=== PATIENT | male | born 1960 | race Caucasian/White ===

== ENCOUNTER 2019-03-01 11:13 | Observation (INO) | payer BC, MEDICARE ==
[2019-03-01] MEDS ORDERED: SODIUM CHLORIDE 0.9% 1,000 ML IV STA (12:05)
--- NOTE | 2019-03-01 12:27 | ED ---
Back Pain HPI - General Chief Complaint: Back Pain/Injury Stated Complaint: back pain/left side concerns Time Seen by Provider: 03/01/19 11:20 Source: patient, RN notes reviewed, old records reviewed Limitations: no limitations - History of Present Illness Initial Comments: Patient is an 58-year-old male who presents emergency department today for evaluation for complaints of back pain as well as an episode of left-sided arm and left leg weakness this week. Patient reports that 3 days ago he turned his head felt a sudden sharp pains on his left arm and leg and from which it became a week. He states that he felt like he was dragging his leg and increased dizziness and instability with walking. He states that his symptoms of his left leg weakness have slightly improved. He also states he has a history of cerebral palsy which has some chronic left-sided weakness. Patient states is difficult for him to differentiate the weakness related to cerebral palsy or possibility of stroke. He states he saw his daughter over the weekend who told him he needed to come in for evaluation to rule out TIA. Patient states that he has no headache chest pain or shortness of breath. 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 He does report a significant family history of strokes. - Related Data Home Medications Medication Instructions Recorded Confirmed Losartan/Hydrochlorothiazide 1 tab PO QAM 04/22/16 03/01/19 [Hyzaar 100-25 Tablet] Simvastatin [Zocor] 40 mg PO HS 04/22/16 03/01/19 metFORMIN HCL 1,000 mg PO BID 04/22/16 03/01/19 Dapagliflozin Propanediol [Farxiga] 10 mg PO DAILY 03/01/19 03/01/19 Phentermine HCl [Adipex-P] 37.5 mg PO DAILY 03/01/19 03/01/19 amLODIPine [Norvasc] 5 mg PO DAILY 03/01/19 03/01/19 glipiZIDE XL [Glucotrol XL] 10 mg PO DAILY 03/01/19 03/01/19 Allergies Allergy/AdvReac Type Severity Reaction Status Date / Time No Known Allergies Allergy Verified 03/01/19 11:56 Review of Systems ROS Statement: Those systems with pertinent positive or pertinent negative responses have been documented in the HPI. ROS Other: All systems not noted in ROS Statement are negative. Past Medical History Past Medical History: Diabetes Mellitus, Hyperlipidemia, Hypertension, Musculoskeletal Disorder Additional Past Medical History / Comment(s): cerebral palsy, uses either cane,walker or wheelchair History of Any Multi-Drug Resistant Organisms: None Reported Past Surgical History: Back Surgery Additional Past Surgical History / Comment(s): surgery seun ankles/achilles tendon, "spinal injections" Past Anesthesia/Blood Transfusion Reactions: No Reported Reaction Past Psychological History: No Psychological Hx Reported Smoking Status: Current some day smoker Past Alcohol Use History: Occasional Past Drug Use History: None Reported - Past Family History Father Family Medical History: Cancer General Exam - General Exam Comments Initial Comments: 58-year-old male. Alert and oriented 3. No significant distress. Limitations: no limitations General appearance: alert, in no apparent distress Head exam: Present: atraumatic, normocephalic, normal inspection Eye exam: Present: normal appearance, PERRL, EOMI. Absent: scleral icterus, conjunctival injection, periorbital swelling ENT exam: Present: normal exam, mucous membranes moist Neck exam: Present: normal inspection. Absent: tenderness, meningismus, lymphadenopathy Respiratory exam: Present: normal lung sounds bilaterally. Absent: respiratory distress, wheezes, rales, rhonchi, stridor Cardiovascular Exam: Present: regular rate, normal rhythm, normal heart sounds. Absent: systolic murmur, diastolic murmur, rubs, gallop, clicks GI/Abdominal exam: Present: soft, normal bowel sounds. Absent: distended, tenderness, guarding, rebound, rigid Extremities exam: Present: normal inspection, full ROM, normal capillary refill. Absent: tenderness, pedal edema, joint swelling, calf tenderness Back exam: Present: normal inspection Neurological exam: Present: alert, oriented X3, CN II-XII intact, abnormal gait (Ambulating with walker.). Absent: normal gait Expanded Patient oriented to: Present: person, place, time Speech: Present: fluid speech Cranial nerves: EOM's Intact: Normal, Gag Reflex: Normal, Tongue Deviation: Normal, Facial Sensation: Normal Cerebellar function: Finger to Nose: Normal Upper motor neuron: Pronator Drift: Abnormal Left (Reports chronic left arm and hand weakness. Evidence of slight pronator drift.) Sensory exam: Upper Extremity Light Touch: Normal, Lower Extremity Light Touch: Normal Motor strength exam: RUE: 5, LUE: 4, RLE: 5, LLE: 4 Eye Response: (4) open spontaneously Motor Response: (6) obeys commands Verbal Response: (5) oriented Nadia Total: 15 Psychiatric exam: Present: normal affect, normal mood Skin exam: Present: warm, dry, intact, normal color. Absent: rash Course Vital Signs 03/01/19 03/01/19 03/01/19 11:16 12:28 14:16 Temperature 97.4 F L Pulse Rate 85 66 61 Respiratory 18 18 18 Rate Blood Pressure 148/87 123/58 138/85 O2 Sat by Pulse 99 Oximetry - Reevaluation(s) Reevaluation #1: 03/01/19 14:[address] Mondragon, on-call neurologist. He reviewed the CT findings with myself and discussed the case. He recommended the Patient can stay in patiently at this hospital with MRIs and evaluation by him. Patient agrees to admission. Medical Decision Making - Medical Decision Making Patient is a 58-year-old male presents emergency department today for evaluation complains of turning his head 3 days ago developing numbness and tingling down the left arm and leg. He reports he had worsening weakness over his left arm and leg. Patient reports he has a history of cerebral palsy wished created some chronic weakness. At this time clinical exam is different than occult to d ifferentiate between chronic or new weakness according to Patient. Patient's computed tomography scan showed punctate. Ventricular hypertension. Foci representing early dystrophic calcifications which could be in developmental venous abnormalities or may represent small foci of microhemorrhage. These are seen with moderate periventricular white matter changes. MRI sequence is recommended for further evaluation. There is also some right maxillary mucosal thickening with internal hypoattenuation that could be seen an atypical infection such as fungal infection or internal hemorrhage. He has no nosebleeds or recent history of nosebleeds. He does report he frequently goes to a sauna which could have some indication of fungal sinus infection, but denies any sinus drainage. Patient EKG was reviewed and shows normal sinus rhythm with a normal EKG. Blood work was otherwise unremarkable her chest x-ray was normal. At this time with continued left-sided weakness difficult to differentiate between related to possible TIA versus chronic cervical palsy will admit the Patient with consults to neurology. I discussed the case with Dr. Mondragon who reviewed the CT findings and discussed [place] who agrees to keep the Patient at this hospital. Patient will be given aspirin. - Lab Data Result diagrams: 03/01/19 12:23 03/01/19 12:23 Lab Results 03/01/19 03/01/19 03/01/19 Range/Units 12:23 12:23 12:23 WBC 7.1 (3.8-10.6) k/uL RBC 5.03 (4.30-5.90) m/uL Hgb 14.4 (13.0-17.5) gm/dL Hct 43.3 (39.0-53.0) % MCV 86.0 (80.0-100.0) fL MCH 28.6 (25.0-35.0) pg MCHC 33.2 (31.0-37.0) g/dL RDW 14.1 (11.5-15.5) % Plt Count 243 (150-450) k/uL Neutrophils % 58 % Lymphocytes % 30 % Monocytes % 6 % Eosinophils % 4 % Basophils % 1 % Neutrophils # 4.2 (1.3-7.7) k/uL Lymphocytes # 2.1 (1.0-4.8) k/uL Monocytes # 0.4 (0-1.0) k/uL Eosinophils # 0.3 (0-0.7) k/uL Basophils # 0.1 (0-0.2) k/uL PT 9.7 (9.0-12.0) sec INR 0.9 (<1.2) APTT 23.7 (22.0-30.0) sec Sodium 139 (137-145) mmol/L Potassium 3.6 (3.5-5.1) mmol/L Chloride 104 (98-107) mmol/L Carbon Dioxide 25 (22-30) mmol/L Anion Gap 10 mmol/L BUN 16 (9-20) mg/dL Creatinine 0.74 (0.66-1.25) mg/dL Est GFR (CKD-EPI)AfAm >90 (>60 ml/min/1.73 sqM) Est GFR (CKD-EPI)NonAf >90 (>60 ml/min/1.73 sqM) Glucose 100 H (74-99) mg/dL Calcium 9.6 (8.4-10.2) mg/dL Total Bilirubin 0.7 (0.2-1.3) mg/dL AST 22 (17-59) U/L ALT 23 (21-72) U/L Alkaline Phosphatase 49 (38-126) U/L Troponin I (0.000-0.034) ng/mL Total Protein 7.0 (6.3-8.2) g/dL Albumin 4.4 (3.5-5.0) g/dL 03/01/19 Range/Units 12:23 WBC (3.8-10.6) k/uL RBC (4.30-5.90) m/uL Hgb (13.0-17.5) gm/dL Hct (39.0-53.0) % MCV (80.0-100.0) fL MCH (25.0-35.0) pg MCHC (31.0-37.0) g/dL RDW (11.5-15.5) % Plt Count (150-450) k/uL Neutrophils % % Lymphocytes % % Monocytes % % Eosinophils % % Basophils % % Neutrophils # (1.3-7.7) k/uL Lymphocytes # (1.0-4.8) k/uL Monocytes # (0-1.0) k/uL Eosinophils # (0-0.7) k/uL Basophils # (0-0.2) k/uL PT (9.0-12.0) sec INR (<1.2) APTT (22.0-30.0) sec Sodium (137-145) mmol/L Potassium (3.5-5.1) mmol/L Chloride (98-107) mmol/L Carbon Dioxide (22-30) mmol/L Anion Gap mmol/L BUN (9-20) mg/dL Creatinine (0.66-1.25) mg/dL Est GFR (CKD-EPI)AfAm (>60 ml/min/1.73 sqM) Est GFR (CKD-EPI)NonAf (>60 ml/min/1.73 sqM) Glucose (74-99) mg/dL Calcium (8.4-10.2) mg/dL Total Bilirubin (0.2-1.3) mg/dL AST (17-59) U/L ALT (21-72) U/L Alkaline Phosphatase (38-126) U/L Troponin I <0.012 (0.000-0.034) ng/mL Total Protein (6.3-8.2) g/dL Albumin (3.5-5.0) g/dL 03/01/19 12:42 EKG performed at 1226 shows normal sinus rhythm normal EKG. Ventricular rate of 66 bpm. Intervals 174 ms. QRS duration 90 ms area QTQTC's 36/44 ms. No evidence of ST elevation or T-wave inversion. - Radiology Data Radiology results: report reviewed There are punctate. Ventricular hypertension UA did foci the represent early dystrophic calcifications may be seen in developmental venous abnormalities may be aren't factual or some small foci of microhemorrhage these are seen within moderate periventricular white matter change. MRI with cheery sequence or SR eye sequences recommended. This complex right maxillary mucosal sinus thickening with internal central hypoattenuation they can be seen with atypical infection such as fungal infection or internal hemorrhage. Chest x-ray is negative for any acute cardio primary process. Disposition Clinical Impression: TIA (transient ischemic attack), Cerebral palsy, Left leg weakness Disposition: HOME SELF-CARE Condition: Good Is patient prescribed a controlled substance at d/c from ED?: No Referrals: Ousmane Howard MD [Primary Care Provider] - 1-2 days Time of Disposition: 14:45
[2019-03-01 12:56] LABS: Basophils # (A) 0.1 k/uL (0-0.2); Basophils % (A) 1 %; Eosinophils # (A) 0.3 k/uL (0-0.7); Eosinophils % (A) 4 %; HCT 43.3 % (39.0-53.0); HGB 14.4 gm/dL (13.0-17.5); INR 0.9 (<1.2); Lymphocytes # (A) 2.1 k/uL (1.0-4.8); Lymphocytes % (A) 30 %; MCH 28.6 pg (25.0-35.0); MCHC 33.2 g/dL (31.0-37.0); Mean Platelet Volume 7.4; Monocytes # (A) 0.4 k/uL (0-1.0); Monocytes % (A) 6 %; Neutrophils # (A) 4.2 k/uL (1.3-7.7); Neutrophils % (A) 58 %; Partial Thromboplastin Time 23.7 sec (22.0-30.0); Platelet Count 243 k/uL (150-450); Prothrombin Time 9.7 sec (9.0-12.0); RBC 5.03 m/uL (4.30-5.90); RDW 14.1 % (11.5-15.5); WBC 7.1 k/uL (3.8-10.6)
[2019-03-01 13:02] LABS: ALT 23 U/L (21-72); AST 22 U/L (17-59); Albumin 4.4 g/dL (3.5-5.0); Alkaline Phosphatase 49 U/L (38-126); Anion Gap 10 mmol/L; Blood Urea Nitrogen 16 mg/dL (9-20); Calcium 9.6 mg/dL (8.4-10.2); Carbon Dioxide 25 mmol/L (22-30); Chloride 104 mmol/L (98-107); Glucose 100 mg/dL (74-99); Potassium 3.6 mmol/L (3.5-5.1); Sodium 139 mmol/L (137-145); Total Bilirubin 0.7 mg/dL (0.2-1.3)
--- NOTE | 2019-03-01 13:27 | CT ---
EXAMINATION TYPE: CT brain wo con DATE OF EXAM: 03/01/2019 COMPARISON: NONE HISTORY: Left side weakness and numbness CT DLP: 1013.4 mGycm. Automated Exposure Control for Dose Reduction was Utilized. TECHNIQUE: CT scan of the head is performed without contrast. FINDINGS: There are multiple foci of punctate slight hyperdensity within the left periventricular w angeles matter measuring 2 mm on image 28 in the frontal region, within the right frontal region on maday nal image 31, and within the left frontal periventricular white matter on coronal image 33 as marked in addition to a calcification in the subarachnoid space of the left parietal region either from prio r subarachnoid hemorrhage or intrathecal contrast injection. These foci may represent early dystrophi c calcifications or sometimes can be seen in venous anomalies. It is very unlikely these are present punctate foci of hemorrhage. MRI is recommended for further evaluation as there is surrounding nonspe cific hypoattenuated periventricular white matter change. Early dystrophic calcifications are seen wi thin the left basal ganglia. There is no blurring of the cerda-white matter interface. No suspicious extra-axial fluid collection. Ventricles and peripheral sulci are slightly prominent compatible with mild degree age-related volume loss. Globes are intact. There is complex fluid within the right maxillary sinus, moderate in degree with mild to moderate mucosal thickening in the ethmoid sinuses. Remaining paranasal sinuses and mas toid air cells are well aerated. IMPRESSION: 1. There are punctate periventricular hyperattenuated foci that may represent early dystrophic calcif ications, can be seen in developmental venous anomalies, may be artifactual, or may represent small f oci of microhemorrhage. These are seen within moderate periventricular white matter change. MRI with GRE sequence or SWI sequence is recommended for further evaluation. 2. Complex right maxillary mucosal thickening with internal central hypoattenuation that can be seen in atypical infection such as fungal infection or internal hemorrhage.
--- NOTE | 2019-03-01 13:51 | XR ---
EXAMINATION TYPE: XR chest 2V DATE OF EXAM: 03/01/2019 COMPARISON: NONE HISTORY: Altered mental status, weakness in left arm and leg TECHNIQUE: Frontal and lateral views of the chest are obtained. FINDINGS: There are overlying cardiac leads. There is eventration of the right hemidiaphragm. There i s no focal air space opacity, pleural effusion, or pneumothorax seen. The cardiac silhouette size is within normal limits. The osseous structures are intact. IMPRESSION: No acute cardiopulmonary process.
[2019-03-01] MEDS ORDERED: ASPIRIN 325 MG TAB PO STA (14:46)
[2019-03-01] MEDS ORDERED: SODIUM CHLORIDE 0.9% 1,000 ML IV SCH (15:00)
[2019-03-01 16:04] VITALS: BMI 32.1
[2019-03-01 16:47] LABS: Glucose,Whole Blood 84 mg/dL (75-99)
[2019-03-01] MEDS: metFORMIN 500 MG TAB PO SCH (17:17)
[2019-03-01] MEDS: ACETAMINOPHEN TAB 325 MG TAB PO PRN (17:18)
--- NOTE | 2019-03-01 18:26 | P.CNNES ---
History of Present Illness Consult date: 03/01/19 Reason for Consult: Stroke TIA History of Present Illness: Patient is a 58-year-old male, who has history of cerebral palsy, with mild spastic left hemiparesis, usually walks inside the home without an device, but outside uses a cane. 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 He turned around his body fast to look at something, and then turned right back but then he felt pinch in the back. He noticed increasing weakness of the left arm and left leg. Patient tells me that if the strength in the right arm and leg is 100, he has baseline weakness of 50% on the left side, including left arm and leg related to cerebral palsy. After this incident, he felt it went down to 10% in the left arm and leg. He was dragging his leg, difficulty walking, and using his left arm. He did not seek medical attention. His symptoms started improving. He saw his daughter, who is a nurse, who insisted patient to come to the ER, therefore came almost 6 days after the onset of the symptoms. Patient states that at present his strength in the left side has improved to 40% in the arm and leg (baseline 50% as mentioned) Patient underwent computed tomography scan of the head which revealed punctate periventricular hyperattenuated foci that may represent early dystrophic calcifications, can be seen in developmental venous anomalies, may be artifactual, or may represent small foci of microhemorrhage. These are seen within moderate periventricular white matter change. MRI with GRE sequence or DWI sequence is recommended for further evaluation. Complex right maxillary mucosal thickening with internal central hypoattenuation that can be seen in atypical infection such as fungal infection or internal hemorrhage. Chest x-ray showed no acute process. EKG showed normal sinus rhythm. Patient's blood test shows normal CBC, PT/PTT, Chem-7 and liver panel. Review of Systems History of left hemiparesis from cerebral palsy. Left knee problem from injury. He has left Achilles tendon lengthening for spasticity. Denies any headache problem or vision, slurred speech facial droop. Past Medical History Past Medical History: Diabetes Mellitus, Hyperlipidemia, Hypertension, Musculoskeletal Disorder Additional Past Medical History / Comment(s): cerebral palsy, uses either cane,walker or wheelchair History of Any Multi-Drug Resistant Organisms: None Reported Past Surgical History: Back Surgery Additional Past Surgical History / Comment(s): surgery seun ankles/achilles tendon, "spinal injections" Past Anesthesia/Blood Transfusion Reactions: No Reported Reaction Past Psychological History: No Psychological Hx Reported Smoking Status: Never smoker Past Alcohol Use History: Rare Additional Past Alcohol Use History / Comment(s): occ cigar use Past Drug Use History: None Reported - Past Family History Father Family Medical History: Cancer Medications and Allergies Home Medications Medication Instructions Recorded Confirmed Type Losartan/Hydrochlorothiazide 1 tab PO QAM 04/22/16 03/01/19 History [Hyzaar 100-25 Tablet] Simvastatin [Zocor] 40 mg PO HS 04/22/16 03/01/19 History metFORMIN HCL 1,000 mg PO BID 04/22/16 03/01/19 History Dapagliflozin Propanediol [Farxiga] 10 mg PO DAILY 03/01/19 03/01/19 History Phentermine HCl [Adipex-P] 37.5 mg PO DAILY 03/01/19 03/01/19 History amLODIPine [Norvasc] 5 mg PO DAILY 03/01/19 03/01/19 History glipiZIDE XL [Glucotrol XL] 10 mg PO DAILY 03/01/19 03/01/19 History Allergies Allergy/AdvReac Type Severity Reaction Status Date / Time No Known Allergies Allergy Verified 03/01/19 11:56 Physical Examination - Vital Signs Vital Signs: Vital Signs Temp Pulse Pulse Resp BP BP Pulse Ox 03/01/19 15:18 98.7 F 69 16 126/94 03/01/19 14:16 61 18 138/85 03/01/19 12:28 66 18 123/58 03/01/19 11:16 97.4 F L 85 18 148/87 99 Intake and Output 03/01/19 03/01/19 03/01/19 06:59 14:59 22:59 Output Total 250 Balance -250 Output: Urine 250 Other: # Voids 1 Weight 92.986 kg On examination patient is a middle aged male, very pleasant, in no acu te distress. Patient is alert and awake oriented to time place and person. Speech and language functions are normal. No aphasia or dysarthria. On cranial exam showed patient's pupils are round and reactive to light, visual rios are full, extraocular muscles intact. Patient has mild left facial asymmetry, tongue protrudes the midline. Palatal elevation and sensation normal. On muscle strength testing patient has left pronatior drift from spasticity. The strength is normal in the right arm and right leg. On the left side his deltoid biceps triceps are normal. Onboarding Specialist 5-, hip flexion 5-, ankle dorsiflexion 4, toe extension 3+. Sensations are equal. Reflexes are 1+ to 2+ in the upper limbs, 2+ at the right knee, 1+ on the left. Ankle is 1 on the right, I did not check on the left ankle because of tenderness related to his previous surgery. Plantars are upgoing bilaterally. Results - Laboratory Findings CBC and BMP: 03/01/19 12:23 03/01/19 12:23 Abnormal Lab Findings: Abnormal Labs 03/01/19 12:23 Glucose 100 H Assessment and Plan Assessment: * 58-year-old male with history of mild cerebral palsy with baseline spastic left hemiparesis, admitted with worsening of left-sided weakness of arm and leg after he turned suddenly to look at something, about 6 days ago. Symptoms have improved, but still with some residual weakness from baseline level of functioning, that he notices. Rule out TIA/CVA, spinal stenosis * Abnormal computed tomography scan, with evidence of possible microcalcification related to dystrophic calcification versus microhemorrhages. * Complex right maxillary mucosal thickening with internal central h ypoattenuation. Rule out fungal infection or internal hemorrhage. Plan: MRI of brain with GRE images to rule out CVA, venous malformation, microhemorrhages. We will also check MRI of the cervical spine to rule out spinal stenosis. Will follow after MRIs are completed.
[2019-03-01 20:43] LABS: Glucose,Whole Blood 67 mg/dL (75-99)
[2019-03-01] MEDS ORDERED: ATORVASTATIN 20 MG TAB PO SCH (21:00)
[2019-03-01 21:04] LABS: Glucose,Whole Blood 94 mg/dL (75-99)
[2019-03-01] MEDS: ENOXAPARIN 40 MG/0.4 ML SYRINGE SQ SCH (23:40)
[2019-03-01 23:43] VITALS: RESP 18
--- NOTE | 2019-03-01 23:45 | HP ---
HISTORY AND PHYSICAL DATE OF ADMISSION AND SERVICE: 03/01/2019 PRESENTING COMPLAINT: Left-sided weakness. HISTORY OF PRESENTING COMPLAINT: This is a very pleasant 58-year-old patient who follows with Dr. Howard. Chronic stable medical conditions include diabetes, hypertension, hyperlipidemia and cerebral palsy with some left-sided weakness. The patient normally uses a cane. About a week ago he was cooking and he turned to look on the left side; within 5 minutes he noticed increasing weakness on the left side; that is both the arm and the leg. There was no change in vision, headache. Over the course of 5 or 6 days there was some improvement in the weakness on the left side, about 50%. The patient had to use a walker for that period, but patient decided to come into the ER. The patient's left-sided weakness is not back to the baseline, which is again weak from cerebral palsy. Neurology was consulted. The patient's is at the bedside. No change in bowel or bladder. REVIEW OF SYSTEMS: CONSTITUTIONAL: None. HEENT: None. RESPIRATORY: None. CARDIOVASCULAR: None. GASTROINTESTINAL: None. GENITOURINARY: None. MUSCULOSKELETAL: None. DERMATOLOGICAL: None. HEMATOLOGICAL: None. LYMPHATICS: None. PSYCHIATRY: None. NEUROLOGICAL: As above. PAST MEDICAL HISTORY: 1. Diabetes. 2. Hypertension. 3. Hyperlipidemia. 4. Cerebral palsy. PAST SURGICAL HISTORY: 1. Back surgery. 2. Bilateral ankle surgery/Achilles tendon. PSYCH HISTORY: None. SOCIAL HISTORY: Lives with his . Alcohol, smoking very rarely. The patient is not employed. . FAMILY HISTORY: Cancer, type unknown. HOME MEDICATIONS: 1. Metformin 1000 mg b.i.d. 2. Zocor 40 mg at bedtime. 3. Hyzaar 100/25 one tablet p.o. daily. 4. Glucotrol XL 10 mg p.o. daily. 5. Norvasc 5 mg p.o. daily. 6. Adipex-P 37.5 p.o. daily. 7. Farxiga 10 mg p.o. daily. ALLERGIES: NONE. PHYSICAL EXAMINATION: VITAL SIGNS ON PRESENTATION: Temperature 97.4, pulse 85, respiration 18, blood pressure 148/87, pulse ox 99% on room air. GENERAL APPEARANCE: Well built; BMI of 32.1. Sitting up, awake. EYES: Pupils equal. Conjunctivae normal. HEENT: External appearance of nose and ears normal. Oral cavity normal. NECK: JVD not raised. Mass not palpable. RESPIRATORY: Effort normal. Lungs are clear. CARDIOVASCULAR: First and second sounds normal. No edema. ABDOMEN: Soft, non-tender. Liver and spleen not palpable. LYMPHATIC: No lymph node palpable in neck or axillae. PSYCHIATRY: Alert and oriented x3. Mood and affect normal. NEUROLOGICAL: Pupils equal. Cranial nerves grossly intact. Power on the left side is 4/5. Decreased reflex on the left side. INVESTIGATIONS: White count 7.1, hemoglobin 14.4, potassium 3.6. BUN and creatinine are normal. Accu- Cheks 84, 67. Troponin less than 0.012. EKG tracing, personally reviewed by me, shows normal sinus rhythm. Chest x-ray film, personally reviewed by me, shows mild hyperinflation; otherwise no infiltrates. CT scan of the brain shows some punctate periventricular hyperattenuated foci. ASSESSMENT: 1. This is a patient who suddenly turned his head to the left and then subsequently noticed increased weakness on the left side which is more than his baseline. This happened about 5 or 6 days ago. There has been some improvement in the same. Though this could be a stroke, would have expected it to show up on the CT scan after 4 days, but if it is a smaller focus in the brainstem, MRI would be more sensitive for the same. This could well be a spinal cord concussion from turning his head with recovery, which is already on its way. 2. Chronic left hemiparesis from cerebral palsy. 3. Essential hypertension. 4. Hyperlipidemia. 5. Diabetes mellitus, type 2, on oral hypoglycemic. 6. Obesity; body mass index 32.1. PLAN: Home medications are resumed. The patient is already on aspirin. Accu-Cheks will be followed. Lovenox for DVT prophylaxis. Neurology was consulted, who ordered an MRI of the brain and the spine. Care was discussed the patient and his . Will follow. MMODL / IJN: [id number] /
[2019-03-02 01:12] LABS: Cholesterol 145 mg/dL (<200); HDL Cholesterol 30 mg/dL (40-60); LDL Cholesterol,Calculated 73 mg/dL (0-99); Triglycerides 209 mg/dL (<150)
[2019-03-02] MEDS: ACETAMINOPHEN TAB 325 MG TAB PO PRN (03:03)
[2019-03-02 06:41] LABS: Glucose,Whole Blood 112 mg/dL (75-99)
[2019-03-02] MEDS: metFORMIN 500 MG TAB PO SCH (06:43)
[2019-03-02] MEDS ORDERED: glipiZIDE 5 MG TAB PO SCH (07:30)
[2019-03-02] MEDS: ENOXAPARIN 40 MG/0.4 ML SYRINGE SQ SCH (08:49)
[2019-03-02] MEDS ORDERED: amLODIPine 5 MG TAB PO SCH (09:00)
[2019-03-02] MEDS ORDERED: Dapagliflozin Propanediol [Farxiga] PO SCH (09:00)
[2019-03-02] MEDS ORDERED: ASPIRIN 325 MG TAB PO SCH (09:00)
[2019-03-02] MEDS ORDERED: LOSARTAN-HCTZ 50-12.5 MG 1 EACH TAB PO SCH (09:00)
[2019-03-02 09:37] VITALS: TEMP 97.7
--- NOTE | 2019-03-02 13:58 | MR ---
MRI CERVICAL SPINE: CLINICAL HISTORY: Spasticity, spinal stenosis TECHNIQUE: Multiplanar, multisequence imaging of the cervical spine and brain is performed without co ntrast. COMPARISON: Prior brain CT 03/01/2019 FINDINGS: Brain MRI: There is no restricted diffusion. [place] and scattered periventricular white matter hy perintensity present on inversion recovery T2-weighted sequences. Corpus callosum, pituitary, cervica l medullary junction, cerebellopontine angles are unremarkable. There are normal vascular flow voids. No mass effect or midline shift, no hemorrhage or hydrocephalus. Inflammatory change present in the ethmoid air cells and right maxillary sinus, mucosal thickening in the left x-ray sinus and frontal s inus. The orbits show symmetric appearance. IMPRESSION: White matter demyelination, differential includes multiple sclerosis in the appropriate c linical setting, chronic small vessel ischemia, vasculitis, hypertension. Sinus disease. Cervical spine MRI: At the C2-3 level of the left midline there is abnormal increased signal on inver alysha recovery and T2-weighted sequences. Cervical vertebral bodies show preserved height and alignmen t. There is multilevel spondylosis with some endplate discogenic marrow signal change. Loss of disc h eight and signal present at 4, C4-5, C5-6 and C6-7. C2-3: Posterior disc bulge causes minimal anterior mass effect on the thecal sac. Uncovertebral joint hypertrophy results in some mild right-sided foraminal encroachment. No central stenosis C3-4: Posterior extension of endplate disc complex, broad-based posterior disc bulge causes anterior mass effect on the thecal sac but only mild spinal stenosis. Bilateral foraminal encroachment due to uncovertebral joint hypertrophy facet arthropathy. C4-5: Posterior extension of broad-based disc bulge, endplate disc complex causes anterior mass effec t on the thecal sac. No significant central stenosis. There is a right-sided foraminal encroachment d ue to vertebral joint hypertrophy C5-6: There is some left-sided foraminal encroachment greater than right. No significant central sten osis. Posterior broad-based disc bulge causes mild anterior mass effect on the thecal sac. C6-7: Posterior central disc bulge causes minimal anterior mass effect on the thecal sac. No signific ant central stenosis or foraminal encroachment C7-T1: Unremarkable IMPRESSION: Abnormal cord signal is described, correlate for demyelinating process. Degenerative disc disease and multilevel foraminal encroachment.
--- NOTE | 2019-03-02 14:42 | P.PN ---
Subjective Progress Note Date: 03/02/19 Patient denies any changes in his condition. Patient's was also present today. Patient underwent MRI of the brain and cervical spine. MRI brain showed white matter demyelination, differential includes multiple sclerosis in the appropriate clinical setting, chronic small vessel ischemia, vasculitis, hypertension. There is paranasal sinus disease particularly involving the right maxillary and right frontal sinus. MRI of the cervical spine showed abnormal cord signal, left of the midline at the level of C2 3, suggestive of demyelinating process. Otherwise there is degenerative disc disease and multilevel foraminal encroachment. Objective - Vital Signs Vital signs: Vital Signs Temp 97.7 F 03/02/19 08:00 Pulse 64 03/02/19 12:00 Resp 18 03/02/19 12:00 BP 132/80 03/02/19 12:00 Pulse Ox 100 03/02/19 12:00 Intake & Output 03/01/19 03/02/19 03/02/19 18:59 06:59 18:59 Intake Total 236 600 420 Output Total 250 300 Balance -14 300 420 Weight 92.986 kg 93.3 kg Intake: Intake, IV Titration 600 Amount Sodium Chloride 0.9% 1, 600 000 ml @ 100 mls/hr IV . Q10H JEEVAN Rx#:[id number] Oral 236 420 Output: Urine 250 300 Other: # Voids 1 1 - Exam On examination patient's mental status is intact. Speech is baseline, normal. Patient has mild left hemiparesis, changes compared to yesterday. - Labs CBC & Chem 7: 03/01/19 12:23 03/01/19 12:23 Labs: Abnormal Lab Results - Last 24 Hours (Table) 03/01/19 03/01/19 03/02/19 Range/Units 12:23 20:41 06:39 POC Glucose (mg/dL) 67 L 112 H (75-99) mg/dL Triglycerides 209 H (<150) mg/dL HDL Cholesterol 30 L (40-60) mg/dL Assessment and Plan Assessment: * 58-year-old male with history of mild cerebral palsy with baseline spastic left hemiparesis, admitted with worsening of left-sided weakness of arm and l eg after he turned suddenly to look at something, about 6 days ago. Symptoms have improved, but still with some residual weakness from baseline level of functioning, that he notices. MRI of the brain and cervical spine showed no evidence of CVA or intracranial hemorrhage. However there is white matter signal abnormality, concerning for demyelinating disease like multiple sclerosis. * Right maxillary and frontal sinus disease. Plan: MRI of brain showed no evidence of acute CVA or hemorrhage. MRI of the cervical spine showed some evidence of demyelination involving the left lateral aspect of the spinal cord, at C2-3 level. Rule out multiple sclerosis. Patient will be continued on aspirin 81 mg daily. I would suggest lumbar puncture to evaluate for oligoclonal bands, IgG index to rule out MS. This can be performed as an outpatient in the neurology office. Patient also has right maxillary and right frontal sinus disease. This can be addressed by internal medicine. Neurologically clear for discharge, to follow-up with neurologist as an outpatient.
[2019-03-02 16:24] VITALS: BP 94/53; PULSE 67
--- NOTE | 2019-03-03 10:47 | DS ---
DISCHARGE SUMMARY DATE OF ADMISSION: 03/01/2019 DATE OF DISCHARGE: 03/02/2019 FINAL DIAGNOSES: 1. Possibly spinal cord concussion from neck movement causing left-sided hemiparesis. 2. Chronic left hemiparesis from cerebral palsy. 3. Essential hypertension. 4. Hyperlipidemia. 5. Diabetes mellitus type 2 on oral hypoglycemic. 6. Obesity; body mass index 32.1. 7. Abnormal MRI for demyelinating lesion for further workup as an outpatient. HOSPITAL COURSE: This patient has got baseline cerebral palsy with chronic left-sided weakness. The patient turned to look at the left side, developed increasing weakness on the left side more than the baseline. There was significant improvement by the time of his discharge, but not back to his baseline which is again some weakness. CT scan of the brain was nonspecific. The patient did have a cervical brain MRI that did show multiple disc problems in multiple levels. There was also some abnormal signal in the spinal cord. I did discuss with Dr. Ferrera. It is my impression that the patient probably does have spinal cord slight concussion from turning his neck, especially in view of multiple cervical vertebral problems. Dr. Ferrera wants the patient to follow up as an outpatient neurology. Will set him up for the same. Care was discussed with the patient and . Questions were answered. On examination, blood pressure 132/80. LDL was 73. Discussion and discharge planning more than 35 minutes. CONSULTATION: Dr. Ferrera from Neurology. DISCHARGE MEDICATIONS: 1. HYZAAR 100/25 one tablet p.o. daily. 2. Metformin 1000 mg b.i.d. 3. Farxiga 10 mg p.o. daily. 4. Adipex-P 37.5 p.o. daily. 5. Norvasc 5 mg p.o. daily. 6. Glucotrol XL 10 mg p.o. daily. 7. Aspirin 81 mg p.o. daily. 8. Lipitor 20 mg p.o. q.h.s. Follow up with Dr. Howard in 2 days. Follow up with Dr. Davis in one week. MMODL / IJN: [id number] /
== END 2019-03-02 17:59 | disposition home or self-care (01) ==
LOC: EC 11:13 → 3SCARD 14:46
PROVIDERS: ADMIT Hospitalist; ATTEND Hospitalist
DX: G81.14 Spastic hemiplegia affecting left nondominant side (principal); G80.9 Cerebral palsy, unspecified; R53.1 Weakness; M54.9 Dorsalgia, unspecified; M79.602 Pain in left arm; M79.605 Pain in left leg; R42 Dizziness and giddiness; R20.0 Anesthesia of skin; R20.2 Paresthesia of skin; I10 Essential (primary) hypertension; E78.5 Hyperlipidemia, unspecified; E11.9 Type 2 diabetes mellitus without complications; E66.9 Obesity, unspecified; Z68.32 Body mass index [BMI] 32.0-32.9, adult; R90.89 Other abnormal findings on diagnostic imaging of central nervous system; M50.31 Other cervical disc degeneration, high cervical region; J34.89 Other specified disorders of nose and nasal sinuses; M47.9 Spondylosis, unspecified; F17.290 Nicotine dependence, other tobacco product, uncomplicated; X50.1XXA Overexertion from prolonged static or awkward postures, initial encounter; Y92.000 Kitchen of unspecified non-institutional (private) residence as the place of occurrence of the external cause; Z79.84 Long term (current) use of oral hypoglycemic drugs; Z79.899 Other long term (current) drug therapy; Z82.3 Family history of stroke; Z80.9 Family history of malignant neoplasm, unspecified
CPT/HCPCS: 96361 ×3; 96372 ×2; 96360; 99285; 36415; 93005; 97162; 97530; 97166; 92523; 80061; 80053; 84484; 85025; 85610; 85730; 71046; 70450; 70551; 72141; G0378 ×2; J1650 ×2